=== PATIENT | female | born 1955 | race Caucasian/White ===

== ENCOUNTER → 2017-09-10 | Outpatient (CLI) | payer BC ==
[2017-09-13 23:35] LABS: Pork IgG 5.2 mcg/mL (< 2.0)
[2017-09-13 23:36] LABS: Beef IgG 11.4 mcg/mL (< 2.0); Chicken Meat IgG < 2.0 mcg/mL (< 2.0); Corn IgG 5.7 mcg/mL (< 2.0); Cow's Milk IgG 58.1 mcg/mL (< 2.0); Peanut IgG 3.8 mcg/mL (< 2.0); Potato IgG 2.9 mcg/mL (< 2.0); Soybean IgG < 2.0 mcg/mL (< 2.0); Tomato IgG 4.1 mcg/mL (< 2.0); Wheat IgG 5.9 mcg/mL (< 2.0)
== END | disposition home or self-care (01) ==
LOC: LABWHC1 16:46
PROVIDERS: ATTEND Otolaryngology
DX: J30.89 Other allergic rhinitis (principal)
CPT/HCPCS: 36415; 86001

== ENCOUNTER 2017-12-03 14:42 | Emergency (ER) | payer BC ==
[2017-12-03 14:50] VITALS: TEMP 98.9
[2017-12-03] MEDS ORDERED: ASPIRIN 81 MG PO STA (14:58)
--- NOTE | 2017-12-03 15:02 | ED ---
Chest Pain HPI - General Chief Complaint: Chest Pain Stated Complaint: chest tightness-sent by [email or web address] Time Seen by Provider: 12/03/17 14:50 Source: patient, RN notes reviewed Mode of arrival: wheelchair Limitations: no limitations - History of Present Illness Initial Comments: This a 62-year-old female presents emergency Department from urgent care for cough congestion and chest discomfort. Patient states that she's been sick for last 3 days with chills, cough and body aches. She states that she's been coughing so much that her ribs hurt. Patient was asked if she had chest pain at urgent care and she states that her chest and ribs do hurt and she is advised that she is to go to the emergency department. Patient states that she's had no prior cardiac the disease. Patient denies hypertension, hyperlipidemia, diabetes patient is a nonsmoker. No history of smoking. Patient states her cough is more dry no production. She states that she is on no medications has regular workups with her primary care physician. She denies any shortness of breath. Patient states that they didn't EKG and I told her that it was abnormal and school emergency department. Patient also had strep test and chest x-ray which were within normal limits. Patient states she had one episode of nausea when she was drinking water this morning while at work. She states she is not nauseated this time no diaphoretic episodes. - Related Data Previous Rx's Medication Instructions Recorded Azithromycin [Zithromax Z-pack] 0 mg PO DIRECTED #1 pack 12/03/17 Allergies Allergy/AdvReac Type Severity Reaction Status Date / Time No Known Allergies Allergy Verified 12/03/17 15:00 Review of Systems ROS Statement: Those systems with pertinent positive or pertinent negative responses have been documented in the HPI. ROS Other: All systems not noted in ROS Statement are negative. EKG Findings - EKG Comments: EKG Findings:: EKG was performed shows sinus tachycardia with a rate of 114 MA 150 QRS 84 QT/QTC 312/430 Past Medical History Past Medical History: No Reported History History of Any Multi-Drug Resistant Organisms: None Reported Past Surgical History: Appendectomy, Section, Tonsillectomy Additional Past Surgical History / Comment(s): lymphnode removal Past Psychological History: No Psychological Hx Reported Smoking Status: Never smoker Past Alcohol Use History: None Reported Past Drug Use History: None Reported General Exam Limitations: no limitations General appearance: alert, in no apparent distress Head exam: Present: atraumatic, normocephalic, normal inspection Neck exam: Present: normal inspection, full ROM. Absent: tenderness, meningismus, lymphadenopathy Respiratory exam: Present: normal lung sounds bilaterally, chest wall tenderness (Mild tenderness along the lower ribs). Absent: respiratory distress , wheezes, rales, rhonchi, stridor Cardiovascular Exam: Present: normal rhythm, tachycardia, normal heart sounds. Absent: systolic murmur, diastolic murmur, rubs, gallop, clicks GI/Abdominal exam: Present: soft, normal bowel sounds. Absent: distended, tenderness, guarding, rebound, rigid Neurological exam: Present: alert, oriented X3, CN II-XII intact Skin exam: Present: warm, dry, intact, normal color. Absent: rash Course Vital Signs 12/03/17 14:47 Temperature 98.9 F Pulse Rate 125 H Respiratory 18 Rate Blood Pressure 118/58 O2 Sat by Pulse 99 Oximetry Chest Pain MDM - MDM 62-year-old female presented emergency department for cough cold-like symptoms and chest wall pain. Patient specifically last 3 days chest x-ray, lab work reviewed no acute abnormality. Patient complained of lower rib pain bilaterally worsen the right. This is reproducible pain. It is felt that this is not cardiac in nature. Patient will be discharged at this time with acute bronchitis. Patient will follow with PCP and return for any worsening symptoms. Disposition Clinical Impression: Chest wall pain, Acute bronchitis Disposition: HOME SELF-CARE Condition: Stable Instructions: Acute Bronchitis (ED) Additional Instructions: Please return to the Emergency Department if symptoms worsen or any other concerns. Prescriptions: Azithromycin [Zithromax Z-pack] 0 mg PO DIRECTED #1 pack Referrals: Bibiana Mattson MD [Primary Care Provider] - 1-2 days Time of Disposition: 17:04
[2017-12-03 15:38] LABS: Basophils % (A) 1 %; Eosinophils % (A) 1 %; HCT 38.4 % (34.0-46.0); HGB 12.9 gm/dL (11.4-16.0); Lymphocytes # (A) 0.7 k/uL (1.0-4.8); Lymphocytes % (A) 14 %; MCH 30.2 pg (25.0-35.0); MCHC 33.5 g/dL (31.0-37.0); MCV 90.2 fL (80.0-100.0); Mean Platelet Volume 6.8; Monocytes # (A) 0.3 k/uL (0-1.0); Monocytes % (A) 7 %; Neutrophils # (A) 3.5 k/uL (1.3-7.7); Neutrophils % (A) 76 %; Platelet Count 243 k/uL (150-450); RBC 4.26 m/uL (3.80-5.40); RDW 13.2 % (11.5-15.5); WBC 4.6 k/uL (3.8-10.6)
--- NOTE | 2017-12-03 15:42 | XR ---
EXAMINATION TYPE: XR chest 2V DATE OF EXAM: 12/03/2017 COMPARISON: NONE HISTORY: Abnormal EKG, chest pain TECHNIQUE: Frontal and lateral views of the chest are obtained. FINDINGS: There is no focal air space opacity, pleural effusion, or pneumothorax seen. The cardiac silhouette size is within normal limits. Prominent lung volume could be indicative of underlying COPD . The osseous structures are intact. IMPRESSION: No acute cardiopulmonary process.
[2017-12-03 15:47] LABS: D-Dimer 0.23 mg/L FEU (<0.60)
[2017-12-03 15:52] LABS: Partial Thromboplastin Time 23.1 sec (22.0-30.0); Prothrombin Time 9.8 sec (9.0-12.0)
[2017-12-03 15:53] LABS: ALT 33 U/L (9-52); AST 27 U/L (14-36); Albumin 4.6 g/dL (3.5-5.0); Alkaline Phosphatase 53 U/L (38-126); Anion Gap 12 mmol/L; Blood Urea Nitrogen 13 mg/dL (7-17); Calcium 9.4 mg/dL (8.4-10.2); Carbon Dioxide 28 mmol/L (22-30); Chloride 97 mmol/L (98-107); Glucose 107 mg/dL (74-99); Lipase 104 U/L (23-300); Potassium 3.9 mmol/L (3.5-5.1); Sodium 137 mmol/L (137-145); Total Bilirubin 0.3 mg/dL (0.2-1.3); Total Protein 7.2 g/dL (6.3-8.2)
[2017-12-03 15:58] LABS: Creatine Kinase 85 U/L (30-135)
[2017-12-03 16:07] LABS: Creatine Kinase MB 0.6 ng/mL (0.0-2.4)
[2017-12-03 16:22] LABS: Troponin I <0.012 ng/mL (0.000-0.034)
[2017-12-03 17:25] VITALS: BP 119/54; PULSE 89; RESP 16
== END 2017-12-03 17:25 | disposition home or self-care (01) ==
LOC: EC 14:42
DX: J20.9 Acute bronchitis, unspecified (principal)
CPT/HCPCS: 36415; 71046; 80053; 82550; 82553; 83690; 83735; 84484; 85025; 85379; 85610; 85730; 87502; 93005; 99285

== ENCOUNTER → 2018-04-25 | Outpatient (CLI) | payer BC ==
[2018-04-25 07:36] LABS: Basophils % (A) 1 %; Eosinophils # (A) 0.1 k/uL (0-0.7); Eosinophils % (A) 3 %; HCT 39.8 % (34.0-46.0); HGB 13.3 gm/dL (11.4-16.0); Lymphocytes # (A) 1.6 k/uL (1.0-4.8); Lymphocytes % (A) 43 %; MCH 30.2 pg (25.0-35.0); MCHC 33.3 g/dL (31.0-37.0); MCV 90.7 fL (80.0-100.0); Mean Platelet Volume 6.9; Monocytes # (A) 0.3 k/uL (0-1.0); Monocytes % (A) 7 %; Neutrophils # (A) 1.5 k/uL (1.3-7.7); Neutrophils % (A) 42 %; Platelet Count 250 k/uL (150-450); RBC 4.39 m/uL (3.80-5.40); RDW 12.9 % (11.5-15.5); WBC 3.6 k/uL (3.8-10.6)
[2018-04-25 07:44] LABS: ALT 32 U/L (9-52); AST 23 U/L (14-36); Albumin 4.6 g/dL (3.5-5.0); Alkaline Phosphatase 47 U/L (38-126); Anion Gap 12 mmol/L; Blood Urea Nitrogen 11 mg/dL (7-17); Calcium 9.6 mg/dL (8.4-10.2); Carbon Dioxide 28 mmol/L (22-30); Chloride 99 mmol/L (98-107); Cholesterol 196 mg/dL (<200); Glucose 88 mg/dL (74-99); HDL Cholesterol 86 mg/dL (40-60); LDL Cholesterol,Calculated 100 mg/dL (0-99); Potassium 4.6 mmol/L (3.5-5.1); Sodium 139 mmol/L (137-145); Total Bilirubin 0.4 mg/dL (0.2-1.3); Total Protein 7.2 g/dL (6.3-8.2); Triglycerides 50 mg/dL (<150)
== END | disposition home or self-care (01) ==
LOC: LABWHC1 06:41
PROVIDERS: ATTEND Family Medicine
DX: Z00.00 Encounter for general adult medical examination without abnormal findings (principal)
CPT/HCPCS: 36415; 80053; 80061; 84443; 85025

== ENCOUNTER 2018-05-17 10:24 | Emergency (ER) | payer OTHER, BC ==
[2018-05-17 10:29] VITALS: RESP 18
[2018-05-17] MEDS ORDERED: HYDROmorphone 0.5 MG/0.5 ML SYRINGE IVP STA (10:43)
[2018-05-17] MEDS ORDERED: RX INFO: IV CONTRAST WAS GIVEN 1 EACH MISC MISCELLANE PRN (10:43)
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
[2018-05-17 11:29] LABS: Basophils % (A) 1 %; Eosinophils # (A) 0.1 k/uL (0-0.7); Eosinophils % (A) 2 %; HCT 35.6 % (34.0-46.0); HGB 12.2 gm/dL (11.4-16.0); Lymphocytes # (A) 1.3 k/uL (1.0-4.8); Lymphocytes % (A) 35 %; MCH 30.1 pg (25.0-35.0); MCHC 34.2 g/dL (31.0-37.0); MCV 87.9 fL (80.0-100.0); Mean Platelet Volume 7.6; Monocytes # (A) 0.3 k/uL (0-1.0); Monocytes % (A) 8 %; Neutrophils # (A) 1.8 k/uL (1.3-7.7); Neutrophils % (A) 52 %; Platelet Count 199 k/uL (150-450); RBC 4.05 m/uL (3.80-5.40); WBC 3.5 k/uL (3.8-10.6)
[2018-05-17 11:40] LABS: ALT 25 U/L (9-52); AST 20 U/L (14-36); Albumin 4.2 g/dL (3.5-5.0); Alkaline Phosphatase 42 U/L (38-126); Anion Gap 7 mmol/L; Blood Urea Nitrogen 12 mg/dL (7-17); Calcium 9.2 mg/dL (8.4-10.2); Carbon Dioxide 29 mmol/L (22-30); Chloride 100 mmol/L (98-107); Glucose 94 mg/dL (74-99); Potassium 5.1 mmol/L (3.5-5.1); Sodium 136 mmol/L (137-145); Total Bilirubin 0.3 mg/dL (0.2-1.3); Total Protein 6.5 g/dL (6.3-8.2)
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
[2018-05-17 11:58] LABS: Creatine Kinase 59 U/L (30-135)
[2018-05-17 12:00] LABS: Partial Thromboplastin Time 23.8 sec (22.0-30.0); Prothrombin Time 9.9 sec (9.0-12.0)
[2018-05-17 12:12] LABS: Creatine Kinase MB 0.8 ng/mL (0.0-2.4); Troponin I <0.012 ng/mL (0.000-0.034)
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
[2018-05-17 13:29] VITALS: BP 122/65; PULSE 62; TEMP 98.2
== END 2018-05-17 13:29 | disposition home or self-care (01) ==
LOC: EC 10:24
DX: S16.1XXA Strain of muscle, fascia and tendon at neck level, initial encounter (principal); R07.89 Other chest pain; M54.6 Pain in thoracic spine; V49.40XA Driver injured in collision with unspecified motor vehicles in traffic accident, initial encounter
CPT/HCPCS: 36415; 93005; 86900; 86901; 80053; 82550; 82553; 84484; 85025; 85610; 85730; 86850; 72170; 72125; 71260; 99285; 96374; J1170; Q9967

== ENCOUNTER → 2019-05-30 | Outpatient (CLI) | payer BC ==
[2019-05-30 11:03] LABS: Basophils # (A) 0.1 k/uL (0-0.2); Basophils % (A) 1 %; Eosinophils # (A) 0.1 k/uL (0-0.7); Eosinophils % (A) 3 %; HCT 40.5 % (34.0-46.0); Lymphocytes # (A) 1.9 k/uL (1.0-4.8); Lymphocytes % (A) 44 %; MCH 29.7 pg (25.0-35.0); MCV 92.6 fL (80.0-100.0); Mean Platelet Volume 7.2; Monocytes # (A) 0.3 k/uL (0-1.0); Monocytes % (A) 6 %; Neutrophils # (A) 1.9 k/uL (1.3-7.7); Neutrophils % (A) 44 %; Platelet Count 279 k/uL (150-450); RBC 4.37 m/uL (3.80-5.40); RDW 13.1 % (11.5-15.5); WBC 4.4 k/uL (3.8-10.6)
[2019-05-30 16:55] LABS: African American GFR (CKD) 90.3 (60.0-200.0); Albumin 4.8 g/dL (3.80-4.90); Albumin/Globulin Ratio 2.53 (1.60-3.17); Anion Gap 15.6 mmol/L (4.00-12.00); BUN/Creat Ratio 17.5 Ratio (12.00-20.00); Calcium 9.8 mg/dL (8.7-10.3); Carbon Dioxide 31.4 mmol/L (21.6-31.8); Globulin 1.9 g/dL (1.6-3.3); LDL Cholesterol,Calculated 106.2 mg/dL (0.0-131.0); Potassium 4.4 mmol/L (3.5-5.5); Total Bilirubin 0.6 mg/dL (0.2-1.2); Total Protein 6.7 g/dL (6.2-8.2); VLDL Calculation 12.8 mg/dL (5.00-40.00)
== END | disposition home or self-care (01) ==
LOC: LABWHC1 08:04
PROVIDERS: ATTEND Family Medicine
DX: Z00.00 Encounter for general adult medical examination without abnormal findings (principal)
CPT/HCPCS: 36415; 80053; 80061; 84443; 85025

== ENCOUNTER → 2019-06-16 | Outpatient (CLI) | payer BC ==
--- NOTE | 2019-06-16 14:52 | XR ---
Bilateral knees HISTORY: Bilateral knee pain 2 views of each knee are submitted, correlation prior bilateral knees 05/17/2014 Bone mineralization, joint spaces and alignment are stable. No fracture or dislocation. Difficult to exclude a small left knee joint suprapatellar effusion. Impression: there may be a small left knee joint effusion.
== END | disposition home or self-care (01) ==
LOC: RADXRMAIN 09:21
PROVIDERS: ATTEND Family Medicine
DX: M25.562 Pain in left knee (principal)

== ENCOUNTER → 2019-08-17 | Outpatient (CLI) | payer BC | LOC: LABWHC1 13:11 | PROVIDERS: ATTEND Otolaryngology | DX: J30.89 Other allergic rhinitis (principal) | CPT/HCPCS: 36415; 86001 ==

== ENCOUNTER → 2020-08-03 | Outpatient (CLI) | payer BC ==
[2020-08-03 09:15] LABS: Basophils # (A) 0.1 k/uL (0-0.2); Basophils % (A) 1 %; Eosinophils # (A) 0.1 k/uL (0-0.7); Eosinophils % (A) 3 %; HCT 40.6 % (34.0-46.0); HGB 13.1 gm/dL (11.4-16.0); Lymphocytes # (A) 1.9 k/uL (1.0-4.8); Lymphocytes % (A) 45 %; MCH 29.8 pg (25.0-35.0); MCHC 32.2 g/dL (31.0-37.0); MCV 92.6 fL (80.0-100.0); Mean Platelet Volume 7.3; Monocytes # (A) 0.3 k/uL (0-1.0); Monocytes % (A) 7 %; Neutrophils # (A) 1.8 k/uL (1.3-7.7); Neutrophils % (A) 42 %; Platelet Count 267 k/uL (150-450); RBC 4.39 m/uL (3.80-5.40); RDW 12.9 % (11.5-15.5); WBC 4.2 k/uL (3.8-10.6)
[2020-08-03 16:28] LABS: African American GFR (CKD) 105.4 (60.0-200.0); Albumin 4.7 g/dL (3.80-4.90); Albumin/Globulin Ratio 2.35 (1.60-3.17); Anion Gap 8.6 mmol/L (4.00-12.00); Calcium 9.6 mg/dL (8.7-10.3); Carbon Dioxide 28.4 mmol/L (21.6-31.8); Chol/HDL Ratio 2.67; LDL Cholesterol,Calculated 122.6 mg/dL (0.0-131.0); Non-African American GFR(CKD) 90.9 (60.0-200.0); Potassium 4.5 mmol/L (3.5-5.5); Total Bilirubin 0.7 mg/dL (0.3-1.2); Total Protein 6.7 g/dL (6.2-8.2); VLDL Calculation 12.4 mg/dL (5.00-40.00)
[2020-08-03 16:37] LABS: T4, Free (Free Thyroxine) 1.1 ng/dL (0.80-1.80)
== END | disposition home or self-care (01) ==
LOC: LABWHC1 07:51
PROVIDERS: ATTEND Family Medicine
DX: Z00.00 Encounter for general adult medical examination without abnormal findings (principal); R53.83 Other fatigue; Z11.59 Encounter for screening for other viral diseases; N89.8 Other specified noninflammatory disorders of vagina; N95.9 Unspecified menopausal and perimenopausal disorder; Z68.21 Body mass index [BMI] 21.0-21.9, adult
CPT/HCPCS: 36415; 80053; 80061; 84439; 84443; 85025; 86803

== ENCOUNTER → 2021-08-21 | Outpatient (CLI) | payer BC ==
[2021-08-21 11:04] LABS: Basophils # (A) 0.08 X 10*3/uL (0.00-0.10); Basophils % (A) 1.5 %; Eosinophils # (A) 0.12 X 10*3/uL (0.04-0.35); Eosinophils % (A) 2.3 %; HCT 40.4 % (37.2-46.3); HGB 13.1 g/dL (12.0-15.0); Lymphocytes # (A) 1.89 X 10*3/uL (0.90-5.00); Lymphocytes % (A) 35.7 %; MCH 30.3 pg (27.0-32.0); MCHC 32.4 g/dL (32.0-37.0); MCV 93.5 fL (80.0-97.0); Mean Platelet Volume 10.2 fL (9.5-12.2); Monocytes # (A) 0.44 X 10*3/uL (0.20-1.00); Monocytes % (A) 8.3 %; Neutrophils # (A) 2.74 X 10*3/uL (1.80-7.70); Neutrophils % (A) 51.8 %; Platelet Count 268 X 10*3/uL (140-440); RBC 4.32 X 10*6/uL (4.10-5.20); RDW 13.2 % (11.5-14.5); WBC 5.29 X 10*3/uL (4.50-10.00)
[2021-08-21 11:26] LABS: Albumin 4.7 g/dL (3.8-4.9); Albumin/Globulin Ratio 2.14 (1.60-3.17); Calcium 9.4 mg/dL (8.7-10.3); Chol/HDL Ratio 3.04 Ratio; Globulin 2.2 g/dL (1.6-3.3); HDL Cholesterol 77.2 mg/dL (40.00-60.00); LDL Cholesterol,Calculated 137.6 mg/dL (0.0-131.0); Non-African American GFR(CKD) 76.8 (60.0-200.0); Potassium 4.4 mmol/L (3.5-5.5); Total Bilirubin 0.2 mg/dL (0.30-1.20); Total Protein 6.9 g/dL (6.2-8.2); VLDL Calculation 20.2 mg/dL (5.00-40.00)
== END | disposition home or self-care (01) ==
LOC: LABWHC1 07:33
PROVIDERS: ATTEND Family Medicine
DX: Z00.00 Encounter for general adult medical examination without abnormal findings (principal)
CPT/HCPCS: 36415; 80053; 80061; 84443; 85025

== ENCOUNTER → 2022-08-29 | Outpatient (CLI) | payer BC ==
[2022-08-29 11:31] LABS: Basophils # (A) 0.05 X 10*3/uL (0.00-0.10); Basophils % (A) 1.3 %; Eosinophils # (A) 0.09 X 10*3/uL (0.04-0.35); Eosinophils % (A) 2.4 %; Immature Grans, Automated 0.3 %; Lymphocytes # (A) 1.72 X 10*3/uL (0.90-5.00); Lymphocytes % (A) 46.2 %; MCH 30.7 pg (27.0-32.0); MCHC 34.2 g/dL (32.0-37.0); MCV 89.6 fL (80.0-97.0); Mean Platelet Volume 10.1 fL (9.5-12.2); Monocytes # (A) 0.36 X 10*3/uL (0.20-1.00); Monocytes % (A) 9.7 %; NRBC Per 100 WBC 0 /100 WBCS (0.0-0.0); Neutrophils # (A) 1.49 X 10*3/uL (1.80-7.70); Neutrophils % (A) 40.1 %; Platelet Count 273 X 10*3/uL (140-440); RBC 4.24 X 10*6/uL (4.10-5.20); RDW 12.7 % (11.5-14.5); WBC 3.72 X 10*3/uL (4.50-10.00)
[2022-08-29 12:05] LABS: ALT 16 U/L (8-44); AST 17 U/L (13-35); African American GFR (CKD) 103.9 (60.0-200.0); Albumin 4.7 g/dL (3.8-4.9); Albumin/Globulin Ratio 2.04 (1.60-3.17); Alkaline Phosphatase 55 U/L (41-126); BUN/Creat Ratio 13.57 Ratio (12.00-20.00); Blood Urea Nitrogen 9.5 mg/dL (9.0-27.0); Calcium 9.4 mg/dL (8.7-10.3); Chloride 102 mmol/L (96-109); Chol/HDL Ratio 3.08 Ratio; Globulin 2.3 g/dL (1.6-3.3); Glucose 99 mg/dL (70-110); LDL Cholesterol,Calculated 139.8 mg/dL (0.0-131.0); Non-African American GFR(CKD) 89.7 (60.0-200.0); Potassium 4.1 mmol/L (3.5-5.5); Sodium 139 mmol/L (135-145); VLDL Calculation 15.56 mg/dL (5.00-40.00)
== END | disposition home or self-care (01) ==
LOC: LABWHC1 07:16
PROVIDERS: ATTEND Family Medicine
DX: E78.5 Hyperlipidemia, unspecified (principal)
CPT/HCPCS: 36415; 80053; 80061; 84443; 85025

== ENCOUNTER → 2024-02-26 | Outpatient (CLI) | payer BC, MEDICARE ==
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
--- NOTE | 2024-02-28 08:30 | MM ---
Reason for Exam: Screening (asymptomatic). Last mammogram was performed 8 year(s) and 6 month(s) ago. Patient History: Menarche at age 11. First Full-Term at age 27. Postmenopausal. Risk Values: Elizabeth 5 year model risk: 1.9%. NCI Lifetime model risk: 5.9%. Prior Study Comparison: 03/19/2013 Bilateral Screening Mammogram, [facility]. 08/23/2015 Bilateral Screening Mammogram, [facility]. Tissue Density: The breasts are heterogeneously dense, which may obscure small masses. Findings: Analyzed By CAD. Partially obscured mass measuring 1.1 cm 3.6 cm from the nipple at the 12:00 position. Mammography and ultrasound recommended. No right-sided breast mass identified. Benign calcifications seen bilaterally. Overall Assessment: Incomplete: need additional imaging evaluation, BI-RAD 0 Management: Diagnostic Mammogram of the left breast. . Patient should continue monthly self-breast exams. A clinical breast exam by your physician is recommended on an annual basis. This exam should not preclude additional follow-up of suspicious palpable abnormalities. Note on Elizabeth scores and lifetime risk: 1. A Elizabeth score greater than 3% is considered moderate risk. If this is the case, consider specialist referral to assess eligibility for a risk reducing agent. 2. If overall lifetime risk for the development of breast cancer is 20% or higher, the patient may qualify for future screening with alternating mammogram and breast MRI. Electronically signed and approved by: Ravinder Root M.D. Radiologis
== END | disposition home or self-care (01) ==
LOC: RADMAMWWP 08:33
PROVIDERS: ATTEND Family Medicine
DX: Z12.31 Encounter for screening mammogram for malignant neoplasm of breast (principal); M81.0 Age-related osteoporosis without current pathological fracture; M85.89 Other specified disorders of bone density and structure, multiple sites; Z78.0 Asymptomatic menopausal state
CPT/HCPCS: 77067; 77080

== ENCOUNTER → 2025-01-28 | Outpatient (CLI) | payer MEDICARE, BC ==
[2025-01-28 10:18] LABS: Basophils # (A) 0.08 X 10*3/uL (0.00-0.10); Basophils % (A) 1.5 %; Eosinophils # (A) 0.12 X 10*3/uL (0.04-0.35); Eosinophils % (A) 2.3 %; HCT 44.4 % (37.2-46.3); HGB 14.6 g/dL (12.0-15.0); Lymphocytes # (A) 2.27 X 10*3/uL (0.90-5.00); Lymphocytes % (A) 43.8 %; MCH 30.2 pg (27.0-32.0); MCHC 32.9 g/dL (32.0-37.0); MCV 91.7 FL (80.0-97.0); Mean Platelet Volume 10.3 FL (9.5-12.2); Monocytes # (A) 0.44 X 10*3/uL (0.20-1.00); Monocytes % (A) 8.5 %; NRBC Per 100 WBC 0 X 10*3/uL (0.00-0.01); Neutrophils # (A) 2.26 X 10*3/uL (1.80-7.70); Neutrophils % (A) 43.7 %; Platelet Count 276 X 10*3/uL (140-440); RBC 4.84 X 10*6/uL (4.10-5.20); WBC 5.18 X 10*3/uL (4.50-10.00)
[2025-01-28 10:39] LABS: ALT 27 U/L (8-44); AST 23 U/L (13-35); Albumin 4.8 g/dL (3.8-4.9); Albumin/Globulin Ratio 1.85 Ratio (1.60-3.17); Alkaline Phosphatase 81 U/L (41-126); BUN/Creat Ratio 10.56 Ratio (12.00-20.00); Blood Urea Nitrogen 9.5 mg/dL (9.0-27.0); Calcium 10.1 mg/dL (8.7-10.3); Carbon Dioxide 28.9 mmol/L (21.6-31.8); Chloride 103 mmol/L (96-109); Chol/HDL Ratio 3.44 Ratio; Globulin 2.6 g/dL (1.6-3.3); Glucose 101 mg/dL (70-110); LDL Cholesterol,Calculated 133.5 mg/dL (0.0-131.0); Potassium 4.4 mmol/L (3.5-5.5); Sodium 141 mmol/L (135-145); Total Bilirubin 0.4 mg/dL (0.3-1.2); Total Protein 7.4 g/dL (6.2-8.2); VLDL Calculation 18.96 mg/dL (5.00-40.00)
== END | disposition home or self-care (01) ==
LOC: LABWHC1 07:16
PROVIDERS: ATTEND Family Medicine
DX: E78.5 Hyperlipidemia, unspecified (principal)
CPT/HCPCS: 36415; 80053; 80061; 84443; 85025